=== PATIENT | female | born 1975 | race Caucasian/White ===

== ENCOUNTER 2018-09-04 18:57 | Emergency (ER) | payer MEDICARE, MEDICAID ==
[~2018-09-04] VITALS: Ht 157.5 cm; Wt 116.0 kg
[~2018-09-04 18:57] MED LIST: DIAZ5TAB5 PO; FENT-90 TD; FENT1PAT13 TD; MULT1TAB74 PO; OXYC-511 PO; PANT-47 PO; [UNRECOGNIZED DRUG - CODE] PO
[2018-09-04 18:59] VITALS: BP 231/131
[2018-09-04 19:59] LABS: BASOPHILS % (AUTO) 0.4 % (0-1); EOSINOPHILS # (AUTO) 0.1 X10'3 (0-0.9); EOSINOPHILS % (AUTO) 1.3 % (0-6); HEMATOCRIT 36.9 % (35.0-45.0); HEMOGLOBIN 12.3 g/dl (12.0-16.0); LYMPHOCYTES # (AUTO) 1.4 X10'3 (1.1-4.8); LYMPHOCYTES % (AUTO) 17.4 % (21-51); MEAN CORPUSCULAR HEMOGLOBIN 27.2 PG (27.0-31.0); MEAN CORPUSCULAR HGB CONC 33.3 % (33.0-36.5); MEAN CORPUSCULAR VOLUME 81.7 FL (78-98); MEAN PLATELET VOLUME 8.2 FL (7.4-10.4); MONOCYTES # (AUTO) 0.5 X10'3 (0-0.9); NEUTROPHILS # (AUTO) 5.8 X10'3 (1.8-7.7); NEUTROPHILS % (AUTO) 74.9 % (42-75); PLATELET COUNT 245 X10'3 (140-440); RED BLOOD COUNT 4.52 X10'6 (4.20-5.60); WHITE BLOOD COUNT 7.8 X10'3 (4.5-11.0)
[2018-09-04 20:42] LABS: ALANINE AMINOTRANSFERASE 51 U/L (12-78); ALBUMIN 3.3 G/DL (3.4-5.0); ALBUMIN/GLOBULIN RATIO 0.7 (1.1-1.5); ALKALINE PHOSPHATASE 167 IU/L (46-116); ANION GAP 10 (8-16); ASPARTATE AMINO TRANSFERASE 29 U/L (10-37); BILIRUBIN,TOTAL 0.4 MG/DL (0.1-1.0); BLOOD UREA NITROGEN 14 MG/DL (7-18); CALCIUM 8.7 MG/DL (8.5-10.1); CHLORIDE 100 MMOL/L (99-107); GLUCOSE 134 MG/DL (70-104); POTASSIUM 3.5 MMOL/L (3.5-5.1); SODIUM 139 MMOL/L (135-145); TOTAL PROTEIN 7.8 G/DL (6.4-8.2); eGFR > 90 ML/MIN
[2018-09-04] MEDS ORDERED: iohexol 300mg/ml 100ml inj. ONE (20:56)
[2018-09-04] MEDS ORDERED: dexamethasone 0.5 mg/5ml unit-dose oral solution PO STA (21:50)
[2018-09-04] MEDS ORDERED: ketorolac trometh inj. 60 MG/2 ML VIAL IM ONE (21:50)
[2018-09-04] MEDS ORDERED: dexamethasone sod phosphate 10mg/ml inj PO ONE (21:55)
[2018-09-04] MEDS ORDERED: clindamycin 150mg capsule PO ONE (22:30)
[2018-09-04] MEDS ORDERED: CLIN150C2 PO (22:32)
[2018-09-04] MEDS ORDERED: dexamethasone sod phosphate 10mg/ml inj IV STA (22:42)
[2018-09-04] MEDS ORDERED: ketorolac tromethamine 15mg/ml inj. IV ONE (22:45)
== END 2018-09-04 23:19 | disposition home or self-care (01) ==
LOC: ER 18:58
DX: L03.113 Cellulitis of right upper limb (principal); R11.2 Nausea with vomiting, unspecified; Z88.1 Allergy status to other antibiotic agents; Z88.8 Allergy status to other drugs, medicaments and biological substances; Z79.899 Other long term (current) drug therapy; Z56.0 Unemployment, unspecified
CPT/HCPCS: 36415; 73202; 80053; 83605; 85025; 96374; 96375; 99285; J1100; J1885; Q9967; J8540

== ENCOUNTER 2018-09-08 17:08 | Emergency (ER) | payer MEDICARE, MEDICAID ==
[~2018-09-08] VITALS: Ht 160 cm; Wt 136.4 kg
[~2018-09-08 17:08] MED LIST changes: +CLIN150C2 PO
[2018-09-08] MEDS ORDERED: LIDOcaine 1.5% w/epinephrine 1:200,000 5ml ampul IJ ONE (20:40)
[2018-09-08] MEDS ORDERED: HYDROcodone/acetaminophen 10/325mg tab PO ONE (21:35)
[2018-09-08] MEDS ORDERED: AMLO5TAB4 PO (22:57)
[2018-09-08] MEDS ORDERED: amLODIPine 5mg tablet PO ONE (23:00)
[2018-09-08 23:02] VITALS: BP 212/105
== END 2018-09-08 23:19 | disposition home or self-care (01) ==
LOC: ER 17:09
DX: L02.413 Cutaneous abscess of right upper limb (principal); I10 Essential (primary) hypertension; L03.113 Cellulitis of right upper limb; G89.29 Other chronic pain; Z98.890 Other specified postprocedural states; Z56.0 Unemployment, unspecified; Z88.1 Allergy status to other antibiotic agents; Z79.899 Other long term (current) drug therapy
CPT/HCPCS: 10060; 87070; 87077; 87186; 99284; J3490

== ENCOUNTER 2019-02-16 11:18 | Emergency (ER) | payer MEDICARE, MEDICAID ==
[~2019-02-16] VITALS: Ht 157.5 cm; Wt 138.0 kg
[~2019-02-16 11:18] MED LIST changes: +AMLO5TAB4 PO; +CARI350T29 PO; -CLIN150C2 PO; -[UNRECOGNIZED DRUG - CODE] PO
[2019-02-16 12:11] LABS: CLARITY,URINE CLEAR (Clear); COLOR,URINE YELLOW (Yellow); GLUCOSE, URINE NEGATIVE (Neg); KETONES,URINE NEGATIVE (Neg); LEUKOCYTE ESTERASE ,URINE NEGATIVE (Neg); NITRITES, URINE NEGATIVE (Neg); OCCULT BLOOD,URINE NEGATIVE (Neg); PH,URINE 6.5 (4.8-8.0); PROTEIN,URINE NEGATIVE (Neg); UROBILINOGEN,URINE 0.2 E.U/dL (0.2-1.0)
[2019-02-16 12:16] LABS: UA COLLECTION TYPE CLN CATCH MIDSTREAM
[2019-02-16 12:22] LABS: ALANINE AMINOTRANSFERASE 53 U/L (12-78); ALBUMIN 3.9 G/DL (3.4-5.0); ALBUMIN/GLOBULIN RATIO 0.8 (1.1-1.5); ALKALINE PHOSPHATASE 150 IU/L (46-116); ANION GAP 7 (8-16); ASPARTATE AMINO TRANSFERASE 45 U/L (10-37); BILIRUBIN,TOTAL 0.3 MG/DL (0.1-1.0); BLOOD UREA NITROGEN 15 MG/DL (7-18); BUN/CREATININE RATIO 20.3 (6.6-38.0); CALCIUM 9.3 MG/DL (8.5-10.1); CHLORIDE 100 MMOL/L (99-107); CREATININE 0.74 MG/DL (0.40-0.90); GLUCOSE 126 MG/DL (70-104); POTASSIUM 3.2 MMOL/L (3.5-5.1); SODIUM 138 MMOL/L (135-145); TOTAL CARBON DIOXIDE 31.5 MMOL/L (24-32); TOTAL PROTEIN 8.6 G/DL (6.4-8.2); eGFR 86 ML/MIN
[2019-02-16 12:44] LABS: BASOPHILS % (AUTO) 0.7 % (0-1); EOSINOPHILS # (AUTO) 0.1 X10'3 (0-0.9); EOSINOPHILS % (AUTO) 1.5 % (0-6); HEMATOCRIT 39.9 % (35.0-45.0); HEMOGLOBIN 13.4 g/dl (12.0-16.0); LYMPHOCYTES # (AUTO) 1.7 X10'3 (1.1-4.8); LYMPHOCYTES % (AUTO) 26.4 % (21-51); MEAN CORPUSCULAR HEMOGLOBIN 27.3 PG (27.0-31.0); MEAN CORPUSCULAR HGB CONC 33.7 g/dL (33.0-36.5); MEAN CORPUSCULAR VOLUME 80.9 FL (78-98); MEAN PLATELET VOLUME 7.8 FL (7.4-10.4); MONOCYTES # (AUTO) 0.3 X10'3 (0-0.9); MONOCYTES % (AUTO) 4.5 % (2-12); NEUTROPHILS # (AUTO) 4.2 X10'3 (1.8-7.7); NEUTROPHILS % (AUTO) 66.9 % (42-75); PLATELET COUNT 324 X10'3 (140-440); RED BLOOD COUNT 4.93 X10'6 (4.20-5.60); RED CELL DISTRIBUTION WIDTH 13.4 % (11.5-14.5); WHITE BLOOD COUNT 6.3 X10'3 (4.5-11.0)
[2019-02-16 13:35] LABS: URINE HCG NEGATIVE (NEG)
[2019-02-16] MEDS ORDERED: CYCL-1 PO (14:14)
[2019-02-16] MEDS ORDERED: NAPR-56 PO (14:14)
[2019-02-16] MEDS ORDERED: magnesium oxide 400mg tablet PO ONE (14:15)
[2019-02-16] MEDS ORDERED: potassium Cl 20 mEq SR tablet PO ONE (14:15)
[2019-02-16] MEDS ORDERED: ketorolac trometh inj. 60 MG/2 ML VIAL IM ONE (14:15)
[2019-02-16 15:07] VITALS: BP 199/102
[2019-02-16] MEDS ORDERED: HYDR-4353 PO (15:19)
[2019-02-16] MEDS ORDERED: metoclopramide 10mg tablet PO ONE (15:20)
[2019-02-16] MEDS ORDERED: HYDROcodone/acetaminophen 10/325mg tab PO ONE (15:20)
== END 2019-02-16 15:56 | disposition home or self-care (01) ==
LOC: ER 11:19
DX: M54.5 Low back pain (principal); E87.6 Hypokalemia; I10 Essential (primary) hypertension; G89.29 Other chronic pain; Z56.0 Unemployment, unspecified; Z88.1 Allergy status to other antibiotic agents; Z88.8 Allergy status to other drugs, medicaments and biological substances
CPT/HCPCS: 36415; 80053; 81003; 81025; 85025; 85610; 96372; 99284; J1885; J8597

== ENCOUNTER 2021-04-09 08:37 | Day surgery (SDC) | payer MEDICARE, MEDICAID ==
[~2021-04-09] VITALS: Ht 158.8 cm; Wt 145.4 kg
[~2021-04-09 08:37] MED LIST changes: +CYCL-1 PO; +MULT-620 PO; -MULT1TAB74 PO; -OXYC-511 PO; +OXYC1TAB17 PO
[2021-04-09] MEDS ORDERED: IBUP-1985 PO (08:56)
[2021-04-09] MEDS ORDERED: fentaNYL/PF 50MCG/1 ML 2ML syringe ONE (09:06)
[2021-04-09] MEDS ORDERED: MIDAZolam 1 MG/ML 5ML VIAL ONE (09:06)
[2021-04-09 10:00] VITALS: BP 235/110
[2021-04-09 10:51] VITALS: BP 192/97
[2021-04-09 11:01] VITALS: BP 211/97
[2021-04-09 11:11] VITALS: BP 208/99
[2021-04-09 11:21] VITALS: BP 196/96
== END 2021-04-09 11:35 | disposition home or self-care (01) ==
LOC: GI LAB 08:37
PROVIDERS: ATTEND Internal Medicine Gastroenterology
DX: Z12.11 Encounter for screening for malignant neoplasm of colon (principal); K63.5 Polyp of colon; K62.1 Rectal polyp; K63.89 Other specified diseases of intestine; K56.2 Volvulus; K64.8 Other hemorrhoids; I10 Essential (primary) hypertension; E66.9 Obesity, unspecified; Z68.43 Body mass index [BMI] 50.0-59.9, adult; F17.210 Nicotine dependence, cigarettes, uncomplicated; Z80.0 Family history of malignant neoplasm of digestive organs
CPT/HCPCS: 45380; 45385; 99153; C1773; G0500; J2250; J3010; J7040; 88305; 99152; A4620

== ENCOUNTER 2022-11-05 08:21 | Day surgery (SDC) | payer MEDICARE, MEDICAID ==
[2022-10-29 11:40] LABS: BASOPHILS # (AUTO) 0.1 X10'3 (0-0.2); BASOPHILS % (AUTO) 0.7 % (0-1); EOSINOPHILS # (AUTO) 0.2 X10'3 (0-0.9); EOSINOPHILS % (AUTO) 2.1 % (0-6); LYMPHOCYTES % (AUTO) 24.4 % (21-51); MEAN CORPUSCULAR HEMOGLOBIN 27.1 PG (27.0-31.0); MEAN CORPUSCULAR HGB CONC 33.3 g/dL (33.0-36.5); MEAN CORPUSCULAR VOLUME 81.2 FL (78-98); MEAN PLATELET VOLUME 7.7 FL (7.4-10.4); MONOCYTES # (AUTO) 0.7 X10'3 (0-0.9); MONOCYTES % (AUTO) 7.9 % (2-12); NEUTROPHILS # (AUTO) 5.4 X10'3 (1.8-7.7); NEUTROPHILS % (AUTO) 64.9 % (42-75); PRE OP HEMATOCRIT 36.7 % (35.0-45.0); PRE OP HEMOGLOBIN 12.2 g/dL (12.0-16.0); PRE OP PLATELET COUNT 319 X10'3 (140-440); RED BLOOD COUNT 4.52 X10'6 (4.20-5.60); RED CELL DISTRIBUTION WIDTH 16.1 % (11.5-14.5)
[2022-10-29 11:55] LABS: ALBUMIN 3.7 G/DL (3.4-5.0); ALBUMIN/GLOBULIN RATIO 0.8 (1.1-1.5); ALKALINE PHOSPHATASE 135 IU/L (46-116); BLOOD UREA NITROGEN 27 MG/DL (7-18); CALCIUM 9.3 MG/DL (8.5-10.1); CHLORIDE 101 MMOL/L (99-107); PRE OP ALT 36 U/L (30-65); PRE OP ANION GAP 6 (8-16); PRE OP AST 18 U/L (10-37); PRE OP BILIRUB, TOTAL 0.3 MG/DL (0.0-1.0); PRE OP GLUCOSE 99 MG/DL (70-104); PRE OP SODIUM 137 MMOL/L (135-145); TOTAL CARBON DIOXIDE 30.4 MMOL/L (24-32); TOTAL PROTEIN 8.3 G/DL (6.4-8.2); eGFR 60 ML/MIN
[~2022-11-05] VITALS: Ht 157.5 cm; Wt 147.9 kg
[2022-11-05] VITALS (14 sets, daily range): BP systolic 136–176; BP diastolic 68–115
[~2022-11-05 08:21] MED LIST changes: -AMLO5TAB4 PO; -CARI350T29 PO; +CHLO25TA10 PO; -CYCL-1 PO; -DIAZ5TAB5 PO; -FENT-90 TD; -FENT1PAT13 TD; +LOSA100T57 PO; -MULT-620 PO; -PANT-47 PO; +ceFAZolin inj. 3,000 MG in normal saline 100ml IV soln 100 ML IV ONE; +famotidine 20mg tablet PO ONE; +ringers solution, lacted 1,000 ML IV SCH
--- NOTE | 2022-11-05 09:00 | NUR ---
pt prepped for surgery, large circular mass noted on left upper shoulder blade. pt is very obese and a difficult iv stick. 2 attempts unsuccessful, Dr wiley notified of difficult stick and received order to place in leg. 3rd attempt successful in pts left leg, inserted by Shannon MAYORGA. Back area cleaned with chlorahexidine wipes. pt medicated with pepcid. antibiotics sent with pt. pt assisted up to the bathroom several times. steady gait
[2022-11-05] MEDS ORDERED: LIDOcaine 1% 30ml preserv. free vial ONE (10:41)
[2022-11-05] MEDS ORDERED: BUPIVAcaine 0.5% inj/PF 30 ML ONE (10:41)
[2022-11-05] MEDS ORDERED: sevoflurane 250ml liquid IH ONE (11:01)
[2022-11-05] MEDS ORDERED: ondansetron/PF 4mg/2ml inj IV PRN (11:05)
[2022-11-05] MEDS ORDERED: hydrALAZINE 20mg/ml inj. IV PRN (11:05)
[2022-11-05] MEDS ORDERED: HYDROmorphone/PF 0.2 MG/ML SYRINGE IV PRN ×2 (11:05)
[2022-11-05] MEDS ORDERED: acetaminophen 1,000mg/100ml IV 100 ML IV PRN (11:05)
[2022-11-05] MEDS ORDERED: morphine 2 MG/ML inj. syringe IV PRN (11:05)
[2022-11-05] MEDS ORDERED: meperidine/PF 25mg/ml syringe IV PRN (11:05)
[2022-11-05] MEDS ORDERED: ringers solution, lacted 1,000 ML IV SCH (11:05)
[2022-11-05] MEDS ORDERED: morphine 4 MG/ML inj SYRINge IV PRN (11:05)
[2022-11-05] MEDS ORDERED: proCHLORperazine 10 MG/2 ml inj IV PRN (11:05)
[2022-11-05] MEDS ORDERED: labetalol 20mg/4ml (5mg/ml) syringe IV PRN (11:05)
[2022-11-05] MEDS ORDERED: midazolam 1 mg/ML 2ml injection ONE (11:15)
[2022-11-05] MEDS ORDERED: FENTANYL CITRATE/PF 50 MCG/1 ML VIAL ONE (11:20)
[2022-11-05] MEDS ORDERED: BUPIVAcaine 0.5% inj/PF 30 ml vial IJ ONE (11:39)
[2022-11-05] MEDS ORDERED: ondansetron/PF 4mg/2ml inj ONE (11:45)
[2022-11-05] MEDS ORDERED: propofol inj 20 ML IV ONE (11:45)
[2022-11-05] MEDS ORDERED: LIDOcaine 2% (20mg/ml) 5ml vial ONE (11:45)
[2022-11-05] MEDS ORDERED: dexamethasone sod phosphate 4mg/ml inj. ONE (11:45)
[2022-11-05] MEDS ORDERED: bacitracin 15gm ointment TP ONE (11:54)
--- NOTE | 2022-11-05 12:05 | NUR ---
Received from OR via [facility] IN STABLE CONDITION , accompanied by Anesthesiologist and report given by DIRECTOR OF HUMAN RESOURCES AND Anesthesiolgist. Addendum: 11/05/22 at 1350 by Celeste Roa RN Amended: Links added.
[2022-11-05] MEDS ORDERED: HYDROcodone/acetaminophen 5mg/325mg tablet PO PRN (12:15)
--- NOTE | 2022-11-05 14:25 | NUR ---
PATIENT DISCHARGED FROM PACU IN STABLE CONDITION AFTER WRITTEN AND VERBAL DISCHARGE INSTRUCTIONS GIVEN. . PATIENT GAVE VERBAL UNDERSTANDING OF INSTRUCTIONS GIVEN. PATIENT LEFT FACILITY VIA WHEELCHAIR WITH RN. Addendum: 11/05/22 at 1443 by Celeste Roa RN Amended: Links added.
== END 2022-11-05 14:25 | disposition home or self-care (01) ==
LOC: PAS 08:21
PROVIDERS: ATTEND Surgery
DX: L72.8 Other follicular cysts of the skin and subcutaneous tissue (principal); R20.8 Other disturbances of skin sensation; M79.89 Other specified soft tissue disorders; I10 Essential (primary) hypertension; G89.29 Other chronic pain; E66.01 Morbid (severe) obesity due to excess calories; Z68.43 Body mass index [BMI] 50.0-59.9, adult; Z80.3 Family history of malignant neoplasm of breast; Z80.1 Family history of malignant neoplasm of trachea, bronchus and lung; Z80.8 Family history of malignant neoplasm of other organs or systems; Z82.49 Family history of ischemic heart disease and other diseases of the circulatory system; Z82.3 Family history of stroke; Z82.61 Family history of arthritis; Z87.891 Personal history of nicotine dependence; Z88.1 Allergy status to other antibiotic agents; Z91.040 Latex allergy status; Z79.899 Other long term (current) drug therapy; Z98.890 Other specified postprocedural states; R22.2 Localized swelling, mass and lump, trunk
CPT/HCPCS: 11403; 36415; 80053; 82948; 85025; J0131; J0690; J1100; J1170; J2250; J2405; J2704; J3010; J3490; J7030; J7120; S0020; Z7506; Z7508; Z7512; 88305; A4215; A4618; A7000